=== PATIENT | female | born 1960 | race Caucasian/White ===

== ENCOUNTER 2023-06-24 13:05 | Outpatient (CLI) | payer OTHER ==
[2023-06-24] MEDS ORDERED: iohexoL-300 100 ML VIAL ONE (13:27)
[2023-06-24] MEDS ORDERED: iohexoL-300 100 ML VIAL IVP ONE (15:14)
--- NOTE | 2023-06-24 15:50 | CT Report ---
PROCEDURE: Angio Chest INDICATIONS: THORACIC AORTIC ECTASIA CONTRAST: Omni 300 80ml TECHNIQUE: After the administration of intravenous contrast, 2 mm axial images were acquired from the pulmonary apices to the posterior costophrenic angles during the arterial phase. In addition, 1 mm lung kernel and 5 mm soft tissue kernel reconstructions were performed. 3-dimensional coronal oblique maximum int ensity projection (MIP) reformats, 8 mm axial MIP, and 5 mm coronal and sagittal MPR reformats were t hen performed through the thorax. For radiation dose reduction, the following was used: automated exp osure control, adjustment of mA and/or kV according to patient size. COMPARISON: None. FINDINGS: Image quality: Excellent. Large vessels: Mild aneurysmal dilatation of the ascending aorta, measuring 4.3 cm. Classic three-ves federica arch anatomy. Great vessel origins are widely patent. Transverse arch and descending thoracic aor ta are of normal caliber. SMA and bilateral renal arteries are patent. 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 Normal caliber pul monary tree without focal embolus. Lungs and pleura: No consolidation. No pleural effusions. No pneumothorax. No suspicious pulmonary n odules which require follow up. Mediastinum: Heart size is normal. No pericardial effusion. No large vessel abnormality. No mediastin al adenopathy by size criteria. Small hiatal hernia. Chest wall and lower neck: Thyroid is unremarkable. No axillary or supraclavicular adenopathy by size . There is a masslike density in the right breast which is surrounded by clips, presumably representi ng postsurgical change in the breasts. Bones: No aggressive osseous abnormality. Upper Abdomen: A low-density subcapsular lesion in the right lobe of the liver measuring 2.25 cm most likely represents a cyst versus hemangioma. IMPRESSION: 1. Mild aneurysmal dilatation of the ascending aorta, measuring 4.3 cm. 2. 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 3. No acute pulmonary process. 4. A masslike density in the right breast is presumed to represent postsurgical change. However, clin ical correlation and correlation with previous mammography reports is suggested. Consider mammography if mammography has not been performed within the past year. 5. A low-density subcapsular lesion in the liver most likely represents a cyst versus hemangioma. Com parison with prior imaging is suggested. Reviewed by: Juan Jose Drake MD on 06/24/2023 3:48 PM PST Approved by: Juan Jose Drake MD on 06/24/2023 3:48 PM PST Station ID: [id number]
== END 2023-06-24 13:06 | disposition home or self-care (01) ==
LOC: DI 13:05
PROVIDERS: ATTEND Physician Assistant
DX: I71.21 Aneurysm of the ascending aorta, without rupture (principal); I77.4 Celiac artery compression syndrome; R92.8 Other abnormal and inconclusive findings on diagnostic imaging of breast; K76.89 Other specified diseases of liver
CPT/HCPCS: 71275; Q9967